=== PATIENT | male | born 1950 | race Caucasian/White ===

== ENCOUNTER → 2017-11-02 | Outpatient (CLI) | payer MEDICARE, OTHER ==
[~2017-11-02] MED LIST: ALEVE220 MG PO; ASPIR 8181 MG PO; ASPIRIN325 PO; COLACE100 MG PO; DEPO-TESTO100 MG/1 M IM; GABAPENTIN 100100 MG PO; IBUPROFEN 200200 M1 PO; MIRALAX17 GM PO; OMEPRAZOLE40 MG PO; OXYCODONE HCL 55 MG PO; XARELTO10 MG PO
== END ==
LOC: M.NUC 10-23 08:48
DX: M19.071 Primary osteoarthritis, right ankle and foot (principal)

== ENCOUNTER → 2018-01-26 | Outpatient (CLI) | payer MEDICARE, OTHER | LOC: M.RAD 11:49 | DX: M79.672 Pain in left foot (principal) ==